=== PATIENT | female | born 2005 | race Caucasian/White ===

== ENCOUNTER 2024-06-18 06:08 | Day surgery (SDC) | payer OTHER, SELFPAY ==
[2024-06-18] VITALS (8 sets, daily range): BP systolic 114–130; BP diastolic 62–87; BMI 27.1
[2024-06-18] MEDS: NORMOSOL-R/PLASMALYTE-A 1000 IV (07:30)
[2024-06-18] MEDS: ROXICODONE ORAL SOLUTION 5 MG PO (11:25)
== END 2024-06-18 12:11 | disposition home or self-care (01) ==
LOC: SDS 06:08
PROVIDERS: ATTENDING PHYSICIAN Otolaryngology; FAMILY PHYSICIAN Family Medicine
DX: J35.01 Chronic tonsillitis (principal); J32.0 Chronic maxillary sinusitis; J34.3 Hypertrophy of nasal turbinates
CPT/HCPCS: 42826; 31256; 30140; 88304; 88311